=== PATIENT | female | born 1965 | race African-American/Black ===

== ENCOUNTER → 2017-08-26 12:00 | Outpatient (CLI) | payer OTHER, SELFPAY ==
[2017-08-26 12:20] LABS: Basophils # 0.1 K/mm3 (0-0.2); Basophils % 0.7 % (0.1-2.0); Eosinophils # 0.3 K/mm3 (0.0-0.4); Eosinophils % 2.9 % (0.1-12.0); Hematocrit 43.2 % (37.0-47.0); Hemoglobin 13.6 g/dL (12.2-16.2); Lymphocytes % 27.7 K/mm3 (10-50); Mean Corpuscular HGB Conc 31.5 g/dL (31.8-35.4); Mean Corpuscular Hemoglobin 28.6 pg (27.0-31.2); Mean Corpuscular Volume 90.7 fl (81-99); Mean Platelet Volume 7.5 fl (7.4-10.4); Monocytes # 0.5 K/mm3 (0.1-1.0); Monocytes % 4.4 % (1.7-9.3); Neutrophils # 7.1 K/mm3 (1.8-7.8); Neutrophils % 64.3 % (37.0-80.0); Platelet Count 252 K/mm3 (142-424); Red Blood Count 4.76 M/mm3 (4.20-5.40); Red Cell Distribution Width 13.5 % (11.5-17.5)
[2017-08-26 14:14] LABS: Amphetamine/Metha Screen,Urine Negative ng/mL (<1000); Barbiturates Screen,Urine Negative ng/mL (<200); Benzodiazepines Screen,Urine Negative ng/mL (200); Cannabinoid Screen,Urine Positive ng/mL (<50); Cocaine Screen,Urine Negative ng/g (<300); Methadone Screen,Urine Negative ng/mL (<300); Opiate Screen,Urine Negative ng/mL (<300); Phencyclidine Screen,Urine Negative ng/mL (<25)
[2017-08-26 14:58] LABS: Alanine Aminotransferase 34 U/L (12-78); Albumin Level 3.4 gm/dL (3.4-5.0); Albumin/Globulin Ratio 0.9 (1.1-1.8); Alkaline Phosphatase 91 U/L (46-116); Anion Gap 10.3 mEq/L (5-15); Aspartate Amino Transferase 13 U/L (15-37); Bilirubin,Total 0.2 mg/dL (0.2-1.0); Blood Urea Nitrogen 11 mg/dL (7-18); Calcium 9.2 mg/dL (8.5-10.1); Carbon Dioxide 33 mmol/L (21.0-32.0); Chloride 99 mmol/L (98-107); Creatinine,Serum 0.71 mg/dL (0.55-1.02); Estimated Glomerular Filt Rate 87 ml/min (>60); GFR (African American) 105 ML/MIN (>60); Glucose 264 mg/dL (74-106); Potassium 4.3 mmoL/L (3.5-5.1); Sodium 138 mmol/L (136-145); Total Protein,Serum 7.4 gm/dL (6.4-8.2)
[2017-08-27 08:28] LABS: Iron 51 ug/dL (27-159); UIBC 254 ug/dL (131-425)
[2017-08-27 11:39] LABS: Iron Saturation 17 % (15-55)
== END ==
PROVIDERS: Visit Provider Nurse Practitioner Family
DX: Z79.899 Other long term (current) drug therapy (principal); R53.83 Other fatigue; R42 Dizziness and giddiness
CPT/HCPCS: 36415; 80053; 80305; 83550; 85025

== ENCOUNTER → 2017-09-10 12:16 | Outpatient (CLI) | payer OTHER, SELFPAY ==
--- NOTE | 2017-09-10 12:18 | CI_ITS ---
Cerebrovascular Exam Indications: 780.4 Dizziness and giddiness. IMPRESSIONS 1. The bilateral vertebral arteries are patent with normal antegrade flow. 2. Study suggests less than 20% stenosis involving the right internal carotid artery and the left internal carotid artery. Carotid duplex study. Complete study and Doppler flow study including spectral analysis, color and gruber scale imaging. Height: Height: 160cm. Height: 63in. Weight: Weight: 135.2kg. Weight: 297.4lb. Body mass index: BMI: 52.8kg/m^2. Body surface area: BSA: 2.54m^2. Patient status: Outpatient. Tables: Arterial flow: + +--------+--------+ Location V sys V ed + +--------+--------+ Right CCA - proximal 94.3cm/s 19.6cm/s + +--------+--------+ Right CCA - distal 69.9cm/s 19.6cm/s + +--------+--------+ Right ECA 74.7cm/s -------- + +--------+--------+ Right ICA - proximal 57.3cm/s 17.8cm/s + +--------+--------+ Right ICA - mid 78.6cm/s 24.1cm/s + +--------+--------+ Right ICA - distal 41.9cm/s 11.2cm/s + +--------+--------+ Right vertebral 38.1cm/s -------- + +--------+--------+ Left CCA - proximal 78.9cm/s 16.1cm/s + +--------+--------+ Left CCA - distal 62.2cm/s 16.4cm/s + +--------+--------+ Left ECA 107cm/s -------- + +--------+--------+ Left ICA - proximal 83.6cm/s 24.5cm/s + +--------+--------+ Left ICA - mid 104cm/s 31.4cm/s + +--------+--------+ Left ICA - distal 94.9cm/s 36.5cm/s + +--------+--------+ Left vertebral 33.9cm/s -------- + +--------+--------+ (Report amended ) Electronically signed by: Benjie Medina [id number]
== END ==
PROVIDERS: Family Provider Emergency Medicine; PCP Nurse Practitioner Family; Visit Provider Nurse Practitioner Family
DX: R42 Dizziness and giddiness (principal); R53.83 Other fatigue; Z79.899 Other long term (current) drug therapy
CPT/HCPCS: 93880

== ENCOUNTER → 2017-09-30 11:11 | Outpatient (CLI) | payer OTHER, SELFPAY ==
[2017-09-30 11:34] LABS: Basophils # 0.1 K/mm3 (0-0.2); Basophils % 0.7 % (0.1-2.0); Eosinophils # 0.3 K/mm3 (0.0-0.4); Eosinophils % 2.9 % (0.1-12.0); Hematocrit 46.6 % (37.0-47.0); Hemoglobin 14.3 g/dL (12.2-16.2); Lymphocytes # 2.6 K/mm3 (0.7-4.5); Lymphocytes % 23.8 K/mm3 (10-50); Mean Corpuscular HGB Conc 30.7 g/dL (31.8-35.4); Mean Corpuscular Hemoglobin 28.8 pg (27.0-31.2); Mean Corpuscular Volume 93.8 fl (81-99); Monocytes # 0.4 K/mm3 (0.1-1.0); Neutrophils # 7.4 K/mm3 (1.8-7.8); Neutrophils % 68.6 % (37.0-80.0); Platelet Count 284 K/mm3 (142-424); Red Blood Count 4.97 M/mm3 (4.20-5.40); Red Cell Distribution Width 13.8 % (11.5-17.5); White Blood Count 10.8 K/mm3 (4.8-10.8)
[2017-09-30 15:11] LABS: Ferritin 46 ng/mL (8-388)
[2017-10-01 08:28] LABS: Iron 66 ug/dL (27-159); UIBC 261 ug/dL (131-425)
[2017-10-01 17:52] LABS: Iron Saturation 20 % (15-55)
== END ==
PROVIDERS: PCP Nurse Practitioner Family; Visit Provider Nurse Practitioner
DX: D64.9 Anemia, unspecified (principal); D50.9 Iron deficiency anemia, unspecified
CPT/HCPCS: 36415; 82728; 83550; 85025

== ENCOUNTER → 2017-10-01 11:41 | Outpatient (REF) | payer OTHER, SELFPAY ==
[2017-10-01 19:11] LABS: Amphetamine/Metha Screen,Urine Negative ng/mL (<1000); Barbiturates Screen,Urine Negative ng/mL (<200); Benzodiazepines Screen,Urine Negative ng/mL (200); Cannabinoid Screen,Urine Positive ng/mL (<50); Cocaine Screen,Urine Negative ng/g (<300); Methadone Screen,Urine Negative ng/mL (<300); Opiate Screen,Urine Negative ng/mL (<300); Phencyclidine Screen,Urine Negative ng/mL (<25)
== END ==
LOC: LAB 11:41
PROVIDERS: Visit Provider Nurse Practitioner Family
DX: Z79.899 Other long term (current) drug therapy (principal)
CPT/HCPCS: 80305

== ENCOUNTER → 2017-10-19 09:12 | Outpatient (REF) | payer OTHER, SELFPAY ==
[2017-10-19 19:17] LABS: Amphetamine/Metha Screen,Urine Negative ng/mL (<1000); Barbiturates Screen,Urine Negative ng/mL (<200); Benzodiazepines Screen,Urine Negative ng/mL (200); Cannabinoid Screen,Urine Positive ng/mL (<50); Cocaine Screen,Urine Negative ng/g (<300); Methadone Screen,Urine Negative ng/mL (<300); Opiate Screen,Urine Negative ng/mL (<300); Phencyclidine Screen,Urine Negative ng/mL (<25)
== END ==
LOC: LAB 09:12
PROVIDERS: Visit Provider Nurse Practitioner Family
DX: Z79.899 Other long term (current) drug therapy (principal)
CPT/HCPCS: 80305

== ENCOUNTER → 2019-04-19 17:08 | Outpatient (CLI) | payer OTHER, SELFPAY ==
[2019-04-19 17:31] LABS: Basophils # 0.1 K/mm3 (0-0.2); Basophils % 0.9 % (0.1-2.0); Eosinophils # 0.3 K/mm3 (0.0-0.4); Eosinophils % 2.1 % (0.1-12.0); Hematocrit 51.5 % (37.0-47.0); Hemoglobin 15.5 g/dL (12.2-16.2); Lymphocytes # 3.4 K/mm3 (0.7-4.5); Lymphocytes % 27.5 % (10-50); Mean Corpuscular HGB Conc 30.1 g/dL (31.8-35.4); Mean Corpuscular Hemoglobin 28.3 pg (27.0-31.2); Mean Corpuscular Volume 93.9 fl (81-99); Mean Platelet Volume 8.6 fl (7.4-10.4); Monocytes # 0.5 K/mm3 (0.1-1.0); Monocytes % 3.9 % (1.7-9.3); Neutrophils % 65.5 % (37.0-80.0); Platelet Count 344 K/mm3 (142-424); Red Blood Count 5.49 M/mm3 (4.20-5.40); Red Cell Distribution Width 13.3 % (11.5-17.5); White Blood Count 12.2 K/mm3 (4.8-10.8)
[2019-04-19 18:08] LABS: Hemoglobin A1C 10.2 % (0.0-7.0)
[2019-04-19 20:12] LABS: Alanine Aminotransferase 45 U/L (12-78); Albumin Level 3.7 gm/dL (3.4-5.0); Albumin/Globulin Ratio 0.8 (1.1-1.8); Alkaline Phosphatase 105 U/L (46-116); Anion Gap 13.6 mEq/L (5-15); Aspartate Amino Transferase 27 U/L (15-37); Bilirubin,Total 0.4 mg/dL (0.2-1.0); Blood Urea Nitrogen 15 mg/dL (7-18); Calcium 10.3 mg/dL (8.5-10.1); Carbon Dioxide 29 mmol/L (21.0-32.0); Chloride 95 mmol/L (98-107); Chol/HDL Ratio 7.1 (1-3.5); Cholesterol 269 mg/dL (140-200); Creatinine,Serum 0.87 mg/dL (0.55-1.02); Estimated Glomerular Filt Rate 68 ml/min (>60); GFR (African American) 82 ML/MIN (>60); Globulin 4.6 gm/dl (1.3-3.2); Glucose 318 mg/dL (74-106); HDL Cholesterol 38 mg/dL (29-89); LDL Cholesterol 176 mg/dL (0-130); Potassium 4.6 mmoL/L (3.5-5.1); Sodium 133 mmol/L (136-145); T4 (Thyroxine) 9.9 ug/dl (4.7-13.3); Thyroid Stimulating Hormone 2.97 uIU/ml (0.358-3.740); Total Protein,Serum 8.3 gm/dL (6.4-8.2); Triglycerides 275 mg/dL (30-200); VLDL Cholesterol 55 mg/dL (0-40)
[2019-04-21 07:35] LABS: Vitamin D 25 Hydroxy 10.7 ng/mL (30.0-100.0)
[2019-04-21 10:10] LABS: Creatinine, Urine 180.5 mg/dL (Not Estab.); Microalbumin, Urine 207.2 ug/mL (Not Estab.)
[2019-04-22 18:47] LABS: C-Peptide 9.8 ng/mL (1.1-4.4)
== END ==
PROVIDERS: Visit Provider Nurse Practitioner Family
DX: E11.9 Type 2 diabetes mellitus without complications (principal); E55.9 Vitamin D deficiency, unspecified
CPT/HCPCS: 80053; 80061; 82043; 82570; 82652; 83036; 84436; 84443; 84681; 85025

== ENCOUNTER → 2019-05-16 09:51 | Outpatient (CLI) | payer OTHER, SELFPAY ==
[2019-05-16 11:28] VITALS: BMI 53.6
--- NOTE | 2019-05-16 15:03 | DIET.NUTRFU ---
Nutritional assessment completed by Shauna has been completed under my supervision.
== END ==
PROVIDERS: PCP Emergency Medicine; Visit Provider Nurse Practitioner Family
DX: Z71.3 Dietary counseling and surveillance (principal); E11.9 Type 2 diabetes mellitus without complications
CPT/HCPCS: 97802

== ENCOUNTER → 2019-05-19 13:26 | Outpatient (CLI) | payer OTHER, SELFPAY ==
[2019-05-19 14:22] LABS: Amphetamine/Metha Screen,Urine Negative ng/mL (<1000); Barbiturates Screen,Urine Negative ng/mL (<200); Benzodiazepines Screen,Urine Negative ng/mL (<200); Cannabinoid Screen,Urine Positive ng/mL (<50); Cocaine Screen,Urine Negative ng/mL (<300); Methadone Screen,Urine Negative ng/mL (<300); Opiate Screen,Urine Negative ng/mL (<300); Phencyclidine Screen,Urine Negative ng/mL (<25)
== END ==
PROVIDERS: Visit Provider Nurse Practitioner Family
DX: Z79.899 Other long term (current) drug therapy (principal)
CPT/HCPCS: 80305

== ENCOUNTER → 2019-06-02 06:16 | Outpatient (CLI) | payer OTHER, SELFPAY ==
--- NOTE | 2019-06-02 06:16 | CA_ITS ---
APPROVED REPORT EXAM: Comprehensive 2D, Doppler, and color-flow Echocardiogram [employer] Superintendent: Marycruz Lu RDCS Ht: 5 ft 3 in Wt: 298lbs BSA: 2.29 BP: 147/70 mmHg Indications: Shortness of Breath, Diabetes, Obesity, Hyperlipidemia 2D Dimensions LVOT 2.05 cm (M/F) 1.5-2.5 M-Mode Dimensions RVDd 2.37 cm (0.9-2.6) LVDd 5.27 cm (3.5-5.7) LVDs 3.82 cm (3.5-5.7) IVSd 0.97 cm (0.6-1.1) PWd 0.97 cm (0.6-1.1) EF (Teich) 53.10% FS 27.50% EDV (Teich) 133.60 mL ESV (Teich) 62.70 mL LV Diastology E/A Ratio 0.77 Mitral Valve MV A Velocity 73.00 (40-130 cm/s) Left Ventricle Left atrium is normal size, left ventricle is normal size, left ventricular wall thickness is upper limit of the normal, visually estimated ejection fraction 55 to 60% with no regional wall motion abnormality, grade 1 diastolic dysfunction seen without tissue Doppler evidence of raise left atrial pressure. Right Ventricle Right atrium and right ventricular normal size and contractility. Aortic Valve Aortic valve is grossly normal, there is no aortic stenosis aortic insufficiency. Mitral Valve Mitral valve is grossly normal, there is no mitral stenosis, there is trace mitral regurgitation. Tricuspid Valve Tricuspid valve is grossly normal, there is trace tricuspid regurgitation. Tricuspid regurgitation jet velocity is inadequate for calculation of the right ventricular systolic pressure. Pulmonic Valve Pulmonic valve is poorly visualized. Great Vessels Aortic root is normal size. Pericardium No significant pericardial effusion noted. Conclusion 1. Normal left ventricular size, preserved left ventricular systolic function, visually estimated ejection fraction 55 to 60% with no regional wall motion abnormality, grade 1 diastolic dysfunction seen without tissue Doppler evidence of raise left atrial pressure. 2. Trace mitral and tricuspid regurgitation. 3. No significant pericardial effusion noted. Electronically signed by : Mekhi Carson, 06/02/2019 14:16:30
--- NOTE | 2019-06-02 06:22 | NM_ITS ---
APPROVED REPORT Exam: Nuclear Stress Test Indication: htn, d.m., hyperlipidemia, tob use, palpitations, fatique Patient Location: Outpatient Stress Tech: Ju Moser CO Tech:ROQUE Bernard RT(R)(N) Ht: 5 ft 3 in Wt: 296 lbs Bra Size: 44dd HR: 82 bpm BP: 125/70 mmHg BSA: 2.28 m2 BMI: 52.4 History: htn, d.m., hyperlipidemia, tob use, palpitations, fatique Procedure: Patient received a 0.4 mg of intravenous Lexiscan, resting heart rate 82 bpm, resting blood pressure 125/70 mmHg, with Lexiscan maximum heart rate achived was 115 bpm which is Less than 85 % of the maximum predicted heart rate and blood pressure was 121/52 mmHg. With Lexiscan, patient denied any complaint of chest pain. Electrocardiogram Resting EKG shows sinus rhythm, with Lexiscan less than 1.[address] segment depression noted from the baseline EKG. The EKG portion of the Lexiscan Myoview is nondiagnostic. Cardiac Stress and Resting SPECT Images: Cardiac Stress and Resting SPECT images were obtained using technetium 99m Myoview 31.0 mCi stress and 10.26 mCi at rest. Gated SPECT with analysis of segmental wall motion and calculation of the ejection fraction also done. Cardiac stress and rest SPECT which show a fixed defect involving the inferior posterior basal wall with decreased contractility on the gated SPECT is likely secondary to nontransmural myocardial infarction, no reversible ischemia seen. Computer derived ejection fraction is 59% with moderate inferior wall hypokinesis on gated SPECT. Conclusion: 1. The EKG portion of the Lexiscan Myoview is nondiagnostic. 2. Scintigraphic evidence of nontransmural myocardial scarring involving the inferior wall as described above, computer derived ejection fraction 59% with segmental wall motion abnormality described above. 3. Abnormal Lexiscan Myoview study. Electronically signed by : Mekhi Carson, 06/02/2019 14:47:06
--- NOTE | 2019-06-02 06:22 | CA_ITS ---
APPROVED REPORT Exam: Pharmacologic Technologist: jon mckeon, Ht: 5 ft 3 in Wt: 296 lbs BSA: 2.28 m2 HR: 82 bpm BP: 127/57 mmHg Rhythm: NSR Indications: SOB, PALPATATIONS Medical History Medications: Lisinopril,,,,, HCTZ,,,,, Flonase,,,,, INSULIN,,,,, Albuterol,,,,, LoraTADINE,,,,, DicyCLOMINE,,,,, Hydroxyzine,,,,, RoSUVASTATIN,,,,, DOxycycline,,,,, Phentermine,,,,, OmPERAZOLE,,,,, Allergies: PCN Cardiac Risk Factors: HTN, Hyperlipidemia, Diabetes (insulin), Smoking Stress Test Details Test: LEXISCAN HR Resting HR: 84 bpm Max Heart Rate (APMHR): 167 bpm Max HR Achieved: 116 bpm Target HR (85% APMHR): 141 bpm % of APMHR: 69 Recovery HR: 94 bpm BP Resting BP: 125/57 mmHg Max BP: 138/57 mmHg Recovery BP: 121.0/52.0 mmHg ECG Resting ECG: NSR Clinical Exercise duration: 04:00 min Highest Stage Achieved: Exercise capacity: 1.0 METs Stress ECG Conclusion Lexiscan portion completed. No complaints during peak infusion. Occ PVC. Less than 1.5mm ST Depression. Images to follow. Electronically signed by : Mekhi Carson, 06/02/2019 14:44:21
--- NOTE | 2019-06-02 11:38 | HMH.ITSHM ---
Current Home Medications as stated by this patient Janneth Sepulveda or plastic products sales representative. []triamcinolone rosurastatin omeprazole lisinopril albuterol dicyclomine insulin
== END ==
PROVIDERS: PCP Nurse Practitioner Family; Visit Provider Nurse Practitioner Family
DX: E11.65 Type 2 diabetes mellitus with hyperglycemia (principal); R06.02 Shortness of breath; Z79.4 Long term (current) use of insulin
CPT/HCPCS: 78452; 93017; 93306; A9502; J2785

== ENCOUNTER → 2019-07-04 10:15 | Outpatient (CLI) | payer OTHER, SELFPAY ==
[2019-07-04 10:19] LABS: Microscopic, Urine URINE MICROSCOPIC (MICROSCOPIC)
[2019-07-04 10:43] LABS: Basophils # 0.1 K/mm3 (0-0.2); Basophils % 0.6 % (0.1-2.0); Eosinophils # 0.4 K/mm3 (0.0-0.4); Hematocrit 43.4 % (37.0-47.0); Hemoglobin 13.8 g/dL (12.2-16.2); Lymphocytes # 3.5 K/mm3 (0.7-4.5); Mean Corpuscular HGB Conc 31.7 g/dL (31.8-35.4); Mean Corpuscular Volume 91.3 fl (81-99); Mean Platelet Volume 7.9 fl (7.4-10.4); Monocytes # 0.5 K/mm3 (0.1-1.0); Monocytes % 4.2 % (1.7-9.3); Neutrophils # 7.1 K/mm3 (1.8-7.8); Neutrophils % 62.1 % (37.0-80.0); Platelet Count 324 K/mm3 (142-424); Red Blood Count 4.76 M/mm3 (4.20-5.40); Red Cell Distribution Width 13.7 % (11.5-17.5); White Blood Count 11.5 K/mm3 (4.8-10.8)
[2019-07-04 10:54] LABS: Appearance,Urine CLEAR (Clear); Bilirubin,Urine Negative (Negative); Blood, Urine 2+ (Negative); Color,Urine YELLOW (Yellow); Glucose,Urine (UA) Negative (Negative); Ketones,Urine Negative (Negative); Leukocyte Esterase,Urine Negative (Negative); Nitrate,Urine Negative (Negative); PH,Urine 6.5 (5.0-8.5); Protein,Urine Negative (Negative); Urobilinogen,Urine 0.2 EU/dl (0.2)
[2019-07-04 11:51] LABS: Albumin Level 3.1 gm/dL (3.4-5.0); Anion Gap 11.3 mEq/L (5-15); Blood Urea Nitrogen 15 mg/dL (7-18); Carbon Dioxide 30 mmol/L (21.0-32.0); Chloride 101 mmol/L (98-107); Creatinine,Serum 0.67 mg/dL (0.55-1.02); Estimated Glomerular Filt Rate 92 ml/min (>60); GFR (African American) 111 ML/MIN (>60); Glucose 196 mg/dL (74-106); Phosphorous 3.4 mg/dL (2.4-4.9); Potassium 4.3 mmoL/L (3.5-5.1); Sodium 138 mmol/L (136-145)
[2019-07-04 13:35] LABS: Creatinine,Urine Random 26 mg/dL (20-320)
[2019-07-04 15:09] LABS: Total Protein,Urine Random < 6.0 mg/dL (0.0-11.9)
[2019-07-05 11:08] LABS: Vitamin D 25 Hydroxy 11.3 ng/mL (30.0-100.0)
[2019-07-06 08:14] LABS: Parathyroid Hormone Intact 23 pg/mL (15-65)
== END ==
PROVIDERS: Visit Provider Internal Medicine Nephrology
DX: R80.9 Proteinuria, unspecified (principal)
CPT/HCPCS: 36415; 80069; 81001; 82570; 82652; 83970; 84155; 85025

== ENCOUNTER → 2019-07-06 13:10 | Outpatient (CLI) | payer OTHER, SELFPAY ==
--- NOTE | 2019-07-06 13:10 | CT_ITS ---
PROCEDURE: CT ABDOMEN PELVIS WO CON CLINICAL INDICATION: hernia Umbilical hernia COMPARISON: No exams were available for comparison TECHNIQUE: Axial images obtained with sagittal and coronal reformats. All CT scans at the facility use one or more dose reduction, viz: automated exposure control, ma/kV adjustment per patient size (including targeted exams where dose is matched to indication, i.e. head), or iterative reconstruction technique. FINDINGS: LOWER THORAX: There is a noncalcified 5 mm nodule in the right middle lobe inferiorly with mild fibrotic changes in the right lung base. A subpleural nodular density is present in the right lower lobe posterior laterally measuring 13 mm. There are no previous exams available for comparison. Coronary artery calcification noted ABDOMEN & PELVIS: Fatty liver infiltration with hepatomegaly. No focal liver lesion apparent. Old granulomatous disease of the spleen. The left adrenal gland is prominent measuring 3.3 x 2 cm the internal density is -7 Hounsfield units consistent with an adenoma. The right adrenal gland, pancreas, gallbladder and kidneys have an unremarkable unenhanced appearance. No renal or ureteral calculi. There is diastasis of the abdominal wall at and above the umbilicus with a small umbilical hernia containing fat. There is thickening the subcutaneous tissues at the umbilicus. No fluid collection is evident. No intestinal obstruction or free air. Unremarkable appendix. There is diverticulosis of the descending and sigmoid colon. No evidence of diverticulitis. No pelvic mass abnormal fluid collection or focal inflammatory change of the pelvis. There are degenerative changes of the lumbar spine. Small lymph nodes are present in the inguinal region on both sides. IMPRESSION: 1. Diastasis of the abdominal wall at and just above the region of the umbilicus with a small umbilical hernia with moderate thickening of the subcutaneous tissues of the umbilicus. No abscess or mass. 2. Indeterminate 13 mm and 5 mm nodule in the right lower lobe and right middle lobe respectively. Suggest [address] follow-up of the chest with contrast. 3. Left adrenal adenoma 4. Colonic diverticulosis without diverticulitis 5. Hepatomegaly with fatty liver Dictated by: Cedrick Burnette MD 07/07/2019 10:35 Electronically signed by Cedrick Burnette MD in [place] 07/07/2019 10:35
== END ==
PROVIDERS: PCP Emergency Medicine; Visit Provider Nurse Practitioner Family
DX: K46.9 Unspecified abdominal hernia without obstruction or gangrene (principal)
CPT/HCPCS: 74176

== ENCOUNTER → 2019-07-10 15:02 | Outpatient (POV) | payer OTHER, SELFPAY | PROVIDERS: Visit Provider Internal Medicine Nephrology | DX: Z00.00 Encounter for general adult medical examination without abnormal findings (principal) ==

== ENCOUNTER → 2019-08-08 10:05 | Outpatient (CLI) | payer OTHER, SELFPAY ==
--- NOTE | 2019-08-08 10:11 | CT_ITS ---
PROCEDURE: CT CHEST W CON CLINCAL INDICATION: 3 mth f/u Follow-up lung nodule COMPARISON: CT ABDOMEN PELVIS WO CON from 07/06/2019 TECHNIQUE: IV Contrast: 75ml Optiray 350 Axial images obtained with sagittal and coronal reformats. All CT scans at the facility use one or more dose reduction, viz: automated exposure control, ma/kV adjustment per patient size (including targeted exams where dose is matched to indication, i.e. head), or iterative reconstruction technique. FINDINGS: HEART AND MEDIASTINAL STRUCTURES: There are few scattered small mediastinal lymph nodes. Coronary artery calcifications are present. Normal heart size. LUNGS AND PLEURAL SPACES: There is a fissural nodule in the right minor fissure which measures 11 mm. A vague 4 mm nodules present in the right middle lobe. A noncalcified 5 mm nodule is present in the right middle lobe inferiorly not significantly changed. A subpleural nodular opacity is present in the right lower lobe posterior laterally at 12 mm unchanged. There is a calcified granuloma in the right lower lobe. An 8 mm noncalcified nodules present in the left perihilar region superiorly. No pleural effusions. BONY STRUCTURES: No acute bony abnormalities apparent. UPPER ABDOMEN: Calcification noted at the ostium of the celiac artery with suspected stenosis. Motion artifact obscures fine detail. A ADDITIONAL FINDINGS: No other significant abnormalities. IMPRESSION: 1. There are noncalcified bilateral pulmonary nodules as described above. The nodules in the right lower lobe have not significantly changed in the 1 month interval. The other nodules were not imaged on the previous exam. Recommend six-month follow-up to confirm stability. 2. Other nonacute findings as described above Dictated by: Cedrick Burnette MD 08/09/2019 12:21 Electronically signed by Cedrick Burnette MD in [place] 08/09/2019 12:21
[2019-08-08 10:38] LABS: Anion Gap 12.8 mEq/L (5-15); Blood Urea Nitrogen 20 mg/dL (7-18); Calcium 9.6 mg/dL (8.5-10.1); Carbon Dioxide 29 mmol/L (21.0-32.0); Chloride 100 mmol/L (98-107); Creatinine,Serum 0.88 mg/dL (0.55-1.02); Estimated Glomerular Filt Rate 67 ml/min (>60); GFR (African American) 81 ML/MIN (>60); Glucose 131 mg/dL (74-106); Potassium 3.8 mmoL/L (3.5-5.1); Sodium 138 mmol/L (137-145)
== END ==
PROVIDERS: PCP Nurse Practitioner Family; Visit Provider Nurse Practitioner Family
DX: Z01.818 Encounter for other preprocedural examination (principal); R91.1 Solitary pulmonary nodule
CPT/HCPCS: 36415; 71260; 80048; Q9967

== ENCOUNTER → 2019-08-11 13:25 | Outpatient (CLI) | payer OTHER, SELFPAY ==
[2019-08-11 13:48] LABS: Basophils # 0.1 K/mm3 (0-0.2); Basophils % 0.8 % (0.1-2.0); Eosinophils # 0.3 K/mm3 (0.0-0.4); Eosinophils % 3.1 % (0.1-12.0); Hematocrit 46.5 % (37.0-47.0); Hemoglobin 14.2 g/dL (12.2-16.2); Lymphocytes # 2.6 K/mm3 (0.7-4.5); Lymphocytes % 31.4 % (10-50); Mean Corpuscular HGB Conc 30.5 g/dL (31.8-35.4); Mean Corpuscular Hemoglobin 28.5 pg (27.0-31.2); Mean Corpuscular Volume 93.4 fl (81-99); Mean Platelet Volume 8.1 fl (7.4-10.4); Monocytes # 0.4 K/mm3 (0.1-1.0); Monocytes % 4.8 % (1.7-9.3); Neutrophils # 4.9 K/mm3 (1.8-7.8); Neutrophils % 59.9 % (37.0-80.0); Platelet Count 277 K/mm3 (142-424); Red Blood Count 4.97 M/mm3 (4.20-5.40); Red Cell Distribution Width 14.5 % (11.5-17.5); White Blood Count 8.2 K/mm3 (4.8-10.8)
[2019-08-11 14:22] LABS: Alanine Aminotransferase 41 U/L (9-52); Albumin Level 3.5 g/dL (3.4-5.0); Albumin/Globulin Ratio 0.9 (1.1-1.8); Alkaline Phosphatase 92 U/L (46-116); Anion Gap 12.5 mEq/L (5-15); Aspartate Amino Transferase 20 U/L (15-37); Bilirubin,Total 0.4 mg/dL (0.2-1.0); Blood Urea Nitrogen 15 mg/dL (7-18); Calcium 9.6 mg/dL (8.5-10.1); Carbon Dioxide 29 mmol/L (21.0-32.0); Chloride 105 mmol/L (98-107); Chol/HDL Ratio 4.6 (1-3.5); Cholesterol 147 mg/dL (140-200); Creatinine,Serum 0.81 mg/dL (0.55-1.02); Estimated Glomerular Filt Rate 74 ml/min (>60); GFR (African American) 89 ML/MIN (>60); Globulin 3.9 gm/dl (1.3-3.2); Glucose 123 mg/dL (74-106); HDL Cholesterol 32 mg/dL (29-89); LDL Cholesterol 91 mg/dL (0-130); Potassium 4.5 mmoL/L (3.5-5.1); Sodium 142 mmol/L (137-145); T4 (Thyroxine) 8.6 ug/dl (4.7-13.3); Thyroid Stimulating Hormone 3.02 uIU/ml (0.358-3.740); Total Protein,Serum 7.4 g/dL (6.4-8.2); Triglycerides 120 mg/dL (30-200); VLDL Cholesterol 24 mg/dL (0-40)
[2019-08-11 17:24] LABS: Hemoglobin A1C 7.4 % (0.0-7.0)
[2019-08-12 07:54] LABS: Iron 58 ug/dL (27-159); UIBC 239 ug/dL (131-425)
[2019-08-12 19:12] LABS: Iron Saturation 20 % (15-55)
== END ==
PROVIDERS: Visit Provider Nurse Practitioner Family
DX: E11.9 Type 2 diabetes mellitus without complications (principal); E55.9 Vitamin D deficiency, unspecified; Z79.4 Long term (current) use of insulin
CPT/HCPCS: 80053; 80061; 82652; 83036; 83540; 83550; 84436; 84443; 85025

== ENCOUNTER → 2019-10-11 16:11 | Outpatient (CLI) | payer OTHER, SELFPAY | PROVIDERS: Visit Provider Nurse Practitioner Family | DX: R10.9 Unspecified abdominal pain (principal) | CPT/HCPCS: 87086 ==

== ENCOUNTER → 2019-11-08 15:15 | Outpatient (CLI) | payer OTHER, SELFPAY ==
[2019-11-08 15:54] LABS: Basophils # 0.1 K/mm3 (0-0.2); Basophils % 0.6 % (0.1-2.0); Eosinophils # 0.3 K/mm3 (0.0-0.4); Eosinophils % 2.4 % (0.1-12.0); Hematocrit 43.1 % (37.0-47.0); Hemoglobin 13.4 g/dL (12.2-16.2); Lymphocytes # 2.6 K/mm3 (0.7-4.5); Lymphocytes % 23.6 % (10-50); Mean Corpuscular HGB Conc 31.2 g/dL (31.8-35.4); Mean Corpuscular Hemoglobin 28.9 pg (27.0-31.2); Mean Corpuscular Volume 92.8 fl (81-99); Monocytes # 0.4 K/mm3 (0.1-1.0); Monocytes % 3.9 % (1.7-9.3); Neutrophils # 7.6 K/mm3 (1.8-7.8); Neutrophils % 69.5 % (37.0-80.0); Platelet Count 324 K/mm3 (142-424); Red Blood Count 4.64 M/mm3 (4.20-5.40); Red Cell Distribution Width 15.2 % (11.5-17.5); White Blood Count 10.9 K/mm3 (4.8-10.8)
[2019-11-08 16:25] LABS: Hemoglobin A1C 6.2 % (4.0-6.0)
[2019-11-08 18:05] LABS: Alanine Aminotransferase 28 U/L (12-78); Albumin Level 4.1 g/dl (3.5-5.0); Albumin/Globulin Ratio 1.2 (1.1-1.8); Alkaline Phosphatase 98 U/L (38-126); Anion Gap 11.6 mEq/L (5-15); Aspartate Amino Transferase 29 U/L (14-36); Blood Urea Nitrogen 14 mg/dl (7-17); Carbon Dioxide 31 mmol/L (22.0-30.0); Chloride 98 mmol/L (98-107); Cholesterol 156 mg/dl (140-200); Estimated Glomerular Filt Rate 129 ml/min (>60); GFR (African American) 156 ML/MIN (>60); Globulin 3.3 g/dL (1.3-3.2); Glucose 163 mg/dl (74-100); HDL Cholesterol 52 mg/dl (40-60); Potassium 4.6 mmoL/L (3.5-5.1); Sodium 136 mmol/L (136-145); Total Protein,Serum 7.4 g/dl (6.3-8.2); Triglycerides 138 mg/dl (30-150); VLDL Cholesterol 28 mg/dL (0-40)
[2019-11-08 18:09] LABS: Bilirubin,Total 0.1 mg/dl (0.2-1.3)
[2019-11-08 18:15] LABS: Direct LDL Cholesterol 112.31 mg/dL (100-129)
[2019-11-08 18:22] LABS: T4 (Thyroxine) 8.8 ug/dl (5.53-11.0)
[2019-11-08 18:36] LABS: Thyroid Stimulating Hormone 2.17 uIU/mL (0.465-4.68)
[2019-11-10 07:38] LABS: Vitamin D 25 Hydroxy 23.3 ng/mL (30.0-100.0)
[2019-11-10 11:12] LABS: Microalbumin, Urine 14.9 ug/mL (Not Estab.)
== END ==
PROVIDERS: Visit Provider Nurse Practitioner Family
DX: E11.9 Type 2 diabetes mellitus without complications (principal); E55.9 Vitamin D deficiency, unspecified; Z79.4 Long term (current) use of insulin
CPT/HCPCS: 80053; 80061; 82043; 82652; 83036; 84436; 84443; 85025

== ENCOUNTER → 2020-01-12 10:51 | Outpatient (CLI) | payer OTHER, SELFPAY ==
--- NOTE | 2020-01-12 11:07 | XR_ITS ---
PROCEDURE: XR SHOULDER RT MIN 2V CLINICAL INDICATION: right shoulder pain after picking up heavy object COMPARISON: CXR CHEST(2 VIEWS-NOT PORTABLE) from 10/08/2014 FINDINGS: The lateral clavicle is intact. The sternal clavicular junction is not included on this image. There is narrowing and spurring of the AC joint both superiorly and inferiorly. The humeral head and glenoid appear intact. There are no soft tissue calcifications. IMPRESSION: Degenerate changes of the AC joint, the prominent inferior spurring of the distal clavicle could predispose to a mild degree of impingement syndrome. Dictated by: Dr. Dave Blas MD 01/12/2020 12:[address] Dave Blas MD in [place] 01/12/2020 12:14
[2020-01-12 11:31] LABS: Basophils # 0.1 K/mm3 (0-0.2); Basophils % 0.7 % (0.1-2.0); Eosinophils # 0.3 K/mm3 (0.0-0.4); Eosinophils % 2.5 % (0.1-12.0); Hematocrit 42.6 % (37.0-47.0); Hemoglobin 14.1 g/dL (12.2-16.2); Lymphocytes # 3.2 K/mm3 (0.7-4.5); Lymphocytes % 30.7 % (10-50); Mean Corpuscular Hemoglobin 29.9 pg (27.0-31.2); Mean Corpuscular Volume 90.7 fl (81-99); Mean Platelet Volume 7.4 fl (7.4-10.4); Monocytes # 0.4 K/mm3 (0.1-1.0); Monocytes % 3.7 % (1.7-9.3); Neutrophils # 6.6 K/mm3 (1.8-7.8); Neutrophils % 62.5 % (37.0-80.0); Platelet Count 306 K/mm3 (142-424); Red Cell Distribution Width 13.9 % (11.5-17.5); White Blood Count 10.5 K/mm3 (4.8-10.8)
[2020-01-12 11:56] LABS: Creatinine,Urine Random 17 mg/dL (Not Estab.); Microalbumin < 6.000 mg/L (0-16.7)
[2020-01-12 11:58] LABS: Hemoglobin A1C 6.4 % (4.0-6.0)
[2020-01-12 12:05] LABS: Chloride 98 mmol/L (98-107); Sodium 136 mmol/L (136-145)
[2020-01-12 12:06] LABS: Potassium 4.5 mmoL/L (3.5-5.1)
[2020-01-12 12:08] LABS: Alanine Aminotransferase 28 U/L (12-78); Alkaline Phosphatase 95 U/L (38-126); Anion Gap 10.5 mEq/L (5-15); Aspartate Amino Transferase 28 U/L (14-36); Bilirubin,Total 0.4 mg/dl (0.2-1.3); Blood Urea Nitrogen 17 mg/dl (7-17); Carbon Dioxide 32 mmol/L (22.0-30.0); Estimated Glomerular Filt Rate 88 ml/min (>60); GFR (African American) 106 ML/MIN (>60)
[2020-01-12 12:09] LABS: Albumin Level 4.1 g/dl (3.5-5.0); Albumin/Globulin Ratio 1.3 (1.1-1.8); Calcium 10.3 mg/dl (8.4-10.2); Cholesterol 182 mg/dl (140-200); Globulin 3.2 g/dL (1.3-3.2); Glucose 94 mg/dl (74-100); HDL Cholesterol 50 mg/dl (40-60); Total Protein,Serum 7.3 g/dl (6.3-8.2); Triglycerides 152 mg/dl (30-150); VLDL Cholesterol 30 mg/dL (0-40)
[2020-01-12 12:20] LABS: Direct LDL Cholesterol 103.07 mg/dL (100-129)
[2020-01-12 12:26] LABS: T4 (Thyroxine) 9.9 ug/dl (5.53-11.0)
[2020-01-12 12:39] LABS: Thyroid Stimulating Hormone 1.79 uIU/mL (0.465-4.68)
[2020-01-12 16:25] LABS: Chol/HDL Ratio 3.6 (1-3.5)
== END ==
PROVIDERS: PCP Nurse Practitioner Family; Visit Provider Nurse Practitioner Family
DX: E11.9 Type 2 diabetes mellitus without complications (principal); R80.9 Proteinuria, unspecified; E66.9 Obesity, unspecified; M25.511 Pain in right shoulder
CPT/HCPCS: 36415; 73030; 80053; 80061; 82043; 82570; 83036; 84436; 84443; 85025

== ENCOUNTER → 2020-02-01 07:57 | Outpatient (CLI) | payer OTHER, SELFPAY ==
[2020-02-01 08:14] LABS: Blood Urea Nitrogen 13 mg/dl (7-17); Estimated Glomerular Filt Rate 105 ml/min (>60); GFR (African American) 127 ML/MIN (>60)
== END ==
PROVIDERS: PCP Nurse Practitioner Family; Visit Provider Orthopaedic Surgery
DX: E11.9 Type 2 diabetes mellitus without complications (principal); Z79.4 Long term (current) use of insulin
CPT/HCPCS: 36415; 82565; 84520

== ENCOUNTER → 2020-02-15 14:02 | Outpatient (CLI) | payer OTHER, SELFPAY ==
--- NOTE | 2020-02-15 14:09 | CT_ITS ---
PROCEDURE: CT CHEST W CON CLINCAL INDICATION: 6 mth f/u 6 month f/u lung nodule 75 ml optiary 350 Prior 08/08/19 COMPARISON: CT CT CHEST W CON from 08/08/2019 TECHNIQUE: IV Contrast: 75ml Optiray 350 Axial images obtained with sagittal and coronal reformats. All CT scans at the facility use one or more dose reduction, viz: automated exposure control, ma/kV adjustment per patient size (including targeted exams where dose is matched to indication, i.e. head), or iterative reconstruction technique. FINDINGS: HEART AND MEDIASTINAL STRUCTURES: There are coronary artery calcifications. There are few small mediastinal lymph nodes which have decreased in size compared to 08/08/2019. For instance, there is an AP window node which measures 1.5 x 0.4 cm previously measuring 2.10.9 cm. LUNGS AND PLEURAL SPACES: There is a 10 mm nodule along the right minor fissure which does not appear significantly changed. 5 mm right middle lobe nodule is unchanged. 3 mm noncalcified nodule right lower lobe medially unchanged. The subpleural opacity in the right lower lobe posterior laterally is less apparent previously measuring 12 mm in AP dimension now measuring 8 mm. There is a 3 mm right upper lobe nodule image 34 series 3 unchanged mm nodule right upper lobe image. 3 mm subpleural nodule left upper lobe unchanged. 4 mm nodule left upper lobe medially unchanged. Previously noted left perihilar nodule is smaller measuring 5 mm previously measuring 8 mm. There is a 3 mm noncalcified nodule along the left major fissure image 32 series 3 not readily apparent on the previous study. BONY STRUCTURES: No acute bony abnormalities apparent. UPPER ABDOMEN: Left adrenal gland is enlarged not significantly changed. ADDITIONAL FINDINGS: No other significant abnormalities. IMPRESSION: There are numerous noncalcified pulmonary nodules most of which are unchanged. Only 1 nodule identified is new in the left upper lobe measuring 3 mm. This may not have been seen previously due to slice orientation. Continued six-month follow-up is suggested. The mildly prominent mediastinal lymph nodes and left hilar lymph node are less prominent. Dictated by: Cedrick Burnette MD 02/16/2020 09:36 Cedrick Burnette MD in [place] 02/16/2020 09:36
[2020-02-15 14:16] LABS: Chloride 102 mmol/L (98-107); Sodium 139 mmol/L (136-145)
[2020-02-15 14:17] LABS: Potassium 4.2 mmoL/L (3.5-5.1)
[2020-02-15 14:19] LABS: Blood Urea Nitrogen 14 mg/dl (7-17); Estimated Glomerular Filt Rate 88 ml/min (>60); GFR (African American) 106 ML/MIN (>60)
[2020-02-15 14:20] LABS: Anion Gap 10.2 mEq/L (5-15); Calcium 9.7 mg/dl (8.4-10.2); Carbon Dioxide 31 mmol/L (22.0-30.0); Glucose 110 mg/dl (74-100)
== END ==
PROVIDERS: PCP Nurse Practitioner Family; Visit Provider Nurse Practitioner Family
DX: Z01.818 Encounter for other preprocedural examination (principal); R91.8 Other nonspecific abnormal finding of lung field
CPT/HCPCS: 36415; 71260; 80048; Q9967

== ENCOUNTER → 2020-02-28 16:01 | Outpatient (CLI) | payer OTHER, SELFPAY ==
--- NOTE | 2020-02-28 16:01 | MR_ITS ---
PROCEDURE: MR SHOULDER RT WO CON CLINICAL INDICATION: Rt shoulder pain INJURY TO RIGHT SHOULDER WHEN LIFTING SOMETHING 3 MONTHS AGO, PT STATES IT HASNT BEEN RIGHT SINCE. RIGHT SHOULDER PAIN, LIMITED ROM. PRIOR XRAYS 01-12-20 COMPARISON: DX XR SHOULDER RT MIN 2V from 01/12/2020 TECHNIQUE: Routine multiplanar multi echo sequences are performed without gadolinium enhancement. FINDINGS: Exam somewhat limited secondary to patient's body habitus. Prominent hypertrophic changes are present at the acromioclavicular joint. There is a complete tear of the supraspinatus and infraspinatus tendons with retraction of the musculotendinous fibers. The subscapularis and teres minor tendon appear intact. No obvious labral tear. The bicipital tendon is in place. There is a small shoulder joint effusion with some fluid in the sub coracoid region and subdeltoid area. IMPRESSION: 1. Complete tears of the supraspinatus and infraspinatus tendons with retraction of the musculotendinous fibers 2. Prominent bony hypertrophy of the AC joint. 3. Shoulder joint effusion with subcoracoid and subdeltoid fluid as well Dictated by: Cedrick Burnette MD 03/01/2020 12:41 Cedrick Burnette MD in [place] 03/01/2020 12:41
== END ==
PROVIDERS: PCP Nurse Practitioner Family; Visit Provider Orthopaedic Surgery
DX: M25.511 Pain in right shoulder (principal)
CPT/HCPCS: 73221

== ENCOUNTER 2020-04-11 18:02 | Emergency (ER) | payer OTHER, SELFPAY ==
[2020-04-11 18:11] VITALS: BP 160/79; PULSE 130; RESP 18; TEMP 38.8; O2SAT 98; BMI 50.3
[2020-04-11 18:13] VITALS: BP 160/79; PULSE 130; RESP 18; TEMP 38.8; O2SAT 98; BMI 50.3
--- NOTE | 2020-04-11 18:40 | HMH.EDUTC ---
[facility] Disposition Clinical Impression: Viral syndrome Disposition: Home, Self-Care Condition on Discharge: Good Instructions: Acute Bronchitis, Preventing the Spread of Coronavirus Discharge Instructions Additional Instructions: Drink plenty of fluids. Take tylenol or ibuprofen for pain or fever. Take the medications as directed. Follow up with your regular doctor. GO TO THE ER FOR ANY WORSENING SYMPTOMS FOLLOW THE DIRECTIONS ON THE COVID-19 HAND OUT THAT WE GAVE YOU REGARDING SELF-ISOLATION UNTIL YOU KNOW YOUR COVID-19 RESULTS Prescriptions: Benzonatate [Tessalon Perle 100mg Cap] 100 mg PO TIDP PRN #30 cap PRN Reason: Cough Transmission Status: Received by [facility] Azithromycin [Z-Joel 250mg Tab*] 250 mg PO UD DOSE PK #6 tab Transmission Status: Received by [facility] Referrals: Trevor Cardenas MD [Primary Care Provider] - Time of Disposition: 19:38 Medical Decision Making - Medical Records Medical records reviewed: No: I reviewed the patient's medical records. - Rei Inquiry Pt receiving controlled substance: No Vital Signs: 04/11/20 18:11 04/11/20 18:13 04/11/20 19:48 Temperature 101.9 F H 101.9 F H 97.9 F Temperature Source Oral Oral Oral Pulse Rate 130 H Pulse Rate [Right Radial] 130 H 130 H Respiratory Rate 18 18 18 Blood Pressure 160/79 H Blood Pressure [Right Arm] 160/79 H 160/79 H Blood Pressure Mean [Right Arm] 106 106 Blood Pressure Source Automatic Cuff Blood Pressure Source [Right Arm] Automatic Cuff Blood Pressure Position Sitting Blood Pressure Position [Right Arm] Sitting 02 Sat by Pulse Oximetry 98 98 Oxygen Delivery Method Room Air Room Air Room Air - Lab Data Lab results reviewed: Yes: I reviewed the patient's lab results. Orders (Tests/Meds): ED MEDICATIONS Discontinued Medications Generic Name Dose Route Start Last Admin Trade Name Freq PRN Reason Stop Dose Admin Acetaminophen 975 mg 04/11/20 18:48 04/11/20 18:49 Acetaminophen 325mg Tab PO 04/11/20 18:49 975 mg ONCE ONE Administration Azithromycin 500 mg 04/11/20 19:38 04/11/20 19:42 Azithromycin 250mg Tablet PO 04/11/20 19:39 500 mg ONCE ONE Administration Protocol ORDERS Category Date Time Status Full Resp Panel w/COVID ([facility]) Routine Lab 04/11/20 18:25 Received [facility] HPI - General Stated complaint: fEVER,santana,mUSCLE PAIN,pAIN r sHOULDEFR Time Seen by Provider: 04/11/20 18:46 Mode of Arrival: Ambulatory Source of Information: Patient Limitations: No Limitations Description of Symptoms (Recalled from Triage Doc. by RN): pt presents to ed triage with c/o fever, chills, and body aches since yesterday. HEENT Symptoms (Recalled from RN notes): Yes Resp Symptoms (Recalled from RN notes): No Skin Symptoms (Recalled from RN notes): No MS Symptoms (Recalled from RN notes): Yes Functional Status (Recalled from RN notes): wnl - History of Present Illness Provider Complaint: She c/o cough, chest congestion, bilateral ear pain, feeling bad, body aches and fever since yesterday. She denies any known exposure to covid. - Related Data Home Medications Medication Instructions Recorded Confirmed triamcinolone acetonide 0.1 % 1 applic TOPICAL TID 05/04/19 03/07/20 topical cream clindamycin phosphate 1 % topical TOPICAL 06/16/19 03/07/20 gel insulin aspar prot-insulin aspart 26 unit SQ BID ml 11/17/19 03/07/20 100 unit/mL (70-30) subcutaneous pen Previous Rx's Medication Instructions Recorded mupirocin calcium 2 % nasal 1 applic INTRANASAL BID #1 g 03/12/18 ointment fluticasone propionate 50 See Rx Instructions .ROUTE 01/26/19 mcg/actuation nasal .COMPLEX #16 milliliter spray,suspension albuterol sulfate 90 mcg/actuation See Rx Instructions .ROUTE 04/19/19 aerosol inhaler .COMPLEX #18 inhaler Weight WinsTouch Ultra2 Test Strips #1 ea 05/04/19 diclofenac sodium 1 % topical gel 2 g TOPICAL QID #100 g
--- NOTE | 2020-04-11 18:45 | XR_ITS ---
PROCEDURE: XR CHEST 2V CLINICAL HISTORY: sob Shortness of breath with cough fever and chills COMPARISON: No exams were available for comparison FINDINGS: The cardiomediastinal silhouette and pulmonary vascularity are within normal limits. The lungs are clear without infiltrates, suspicious nodules, or pleural effusions. There is an area of increased density overlying the inferior aspect of the T6 vertebral body possibly due to an overlying osteophyte versus parenchymal opacity. Follow-up may confirm IMPRESSION: No acute finding. See above for detail Dictated by: Cedrick Burnette MD 04/11/2020 20:01 Cedrick Burnette MD in [place] 04/11/2020 20:01
[2020-04-11 19:48] VITALS: BP 160/79; PULSE 130; RESP 18; TEMP 36.6; O2SAT 98
[2020-04-13 09:02] LABS: Covid-19 Nasal PCR Sendout UK NOT DETECTED
== END 2020-04-11 19:50 | disposition home or self-care (01) ==
PROVIDERS: Emergency Provider Nurse Practitioner Family; PCP Emergency Medicine
DX: B34.9 Viral infection, unspecified (principal); Z20.828 Contact with and (suspected) exposure to other viral communicable diseases; E11.9 Type 2 diabetes mellitus without complications; I10 Essential (primary) hypertension; Z88.0 Allergy status to penicillin; Z79.899 Other long term (current) drug therapy
CPT/HCPCS: 71046; 87581; 87633; 87798; 99202; U0003

== ENCOUNTER → 2020-07-18 13:58 | Outpatient (CLI) | payer OTHER, SELFPAY ==
[2020-07-18 14:09] LABS: Basophils # 0.1 K/mm3 (0-0.2); Basophils % 0.7 % (0.1-2.0); Eosinophils # 0.4 K/mm3 (0.0-0.4); Eosinophils % 3.4 % (0.1-12.0); Hematocrit 50.1 % (37.0-47.0); Hemoglobin 16.3 g/dL (12.2-16.2); Lymphocytes # 2.9 K/mm3 (0.7-4.5); Lymphocytes % 23.1 % (10-50); Mean Corpuscular HGB Conc 32.4 g/dL (31.8-35.4); Mean Corpuscular Hemoglobin 29.3 pg (27.0-31.2); Mean Corpuscular Volume 90.3 fl (81-99); Monocytes # 0.5 K/mm3 (0.1-1.0); Monocytes % 4.2 % (1.7-9.3); Neutrophils # 8.6 K/mm3 (1.8-7.8); Neutrophils % 68.5 % (37.0-80.0); Platelet Count 365 K/mm3 (142-424); Red Blood Count 5.55 M/mm3 (4.20-5.40); Red Cell Distribution Width 14.7 % (11.5-17.5); White Blood Count 12.6 K/mm3 (4.8-10.8)
[2020-07-18 14:25] LABS: Alanine Aminotransferase 26 U/L (12-78); Albumin Level 4.2 g/dl (3.5-5.0); Albumin/Globulin Ratio 1.2 (1.1-1.8); Alkaline Phosphatase 127 U/L (38-126); Anion Gap 12.3 mEq/L (5-15); Aspartate Amino Transferase 27 U/L (14-36); Bilirubin,Total 0.9 mg/dl (0.2-1.3); Blood Urea Nitrogen 18 mg/dl (7-17); Calcium 10.7 mg/dl (8.4-10.2); Carbon Dioxide 30 mmol/L (22.0-30.0); Chloride 101 mmol/L (98-107); Chol/HDL Ratio 4.5 (1-3.5); Cholesterol 210 mg/dl (140-200); Estimated Glomerular Filt Rate 75 ml/min (>60); GFR (African American) 90 ML/MIN (>60); Globulin 3.5 g/dL (1.3-3.2); Glucose 140 mg/dl (74-100); HDL Cholesterol 47 mg/dl (40-60); Potassium 4.3 mmoL/L (3.5-5.1); Sodium 139 mmol/L (136-145); Total Protein,Serum 7.7 g/dl (6.3-8.2); Triglycerides 143 mg/dl (30-150); VLDL Cholesterol 29 mg/dL (0-40)
[2020-07-18 14:28] LABS: Creatinine,Urine Random 127 mg/dL (Not Estab.)
[2020-07-18 14:36] LABS: Direct LDL Cholesterol 132.92 mg/dL (100-129)
[2020-07-18 14:41] LABS: 25-OH Vitamin D, Total 15.5 ng/mL (30-100)
[2020-07-18 14:42] LABS: T4 (Thyroxine) 13.7 ug/dl (5.53-11.0)
[2020-07-18 15:56] LABS: Hemoglobin A1C 6.6 % (4.0-6.0)
== END ==
PROVIDERS: Visit Provider Nurse Practitioner Family
DX: Z00.00 Encounter for general adult medical examination without abnormal findings (principal); E11.9 Type 2 diabetes mellitus without complications; E78.5 Hyperlipidemia, unspecified; I10 Essential (primary) hypertension; E55.9 Vitamin D deficiency, unspecified; Z79.4 Long term (current) use of insulin
CPT/HCPCS: 80053; 80061; 82043; 82306; 82570; 83036; 84436; 84443; 85025

== ENCOUNTER → 2020-12-03 07:40 | Outpatient (CLI) | payer OTHER, SELFPAY ==
--- NOTE | 2020-12-03 07:40 | CT_ITS ---
PROCEDURE: CT CHEST WO CON CLINICAL INDICATION: Lung nodule follow-up COMPARISON: CT CT ABDOMEN PELVIS WO CON from 07/06/[address] CHEST W CON from 02/15/2020 TECHNIQUE: Axial images obtained with sagittal and coronal reformats. All CT scans at the facility use one or more dose reduction, viz: automated exposure control, ma/kV adjustment per patient size (including targeted exams where dose is matched to indication, i.e. head), or iterative reconstruction technique. FINDINGS: HEART AND MEDIASTINAL STRUCTURES: Scattered small mediastinal lymph nodes unchanged. There are extensive coronary artery calcifications the indicating coronary artery disease LUNGS AND PLEURAL SPACES: There are scattered small pulmonary nodules as previously described which are not significantly changed. No new nodules are evident. No effusions or infiltrates. BONY STRUCTURES: Degenerative changes thoracic spine UPPER ABDOMEN: Prominent bilateral adrenal glands maintaining an adrenal form shape not significantly changed consistent with adenomatous formation ADDITIONAL FINDINGS: No other significant abnormalities. IMPRESSION: Overall stable CT appearance of the chest. No change in the small bilateral pulmonary nodules with no new nodules apparent. No change in the mildly prominent mediastinal lymph nodes. Dictated by: Cedrick Burnette MD 12/03/2020 12:40 Cedrick Burnette MD in [place] 12/03/2020 12:40
== END ==
PROVIDERS: PCP Emergency Medicine; Visit Provider Internal Medicine Pulmonary Disease
DX: R91.8 Other nonspecific abnormal finding of lung field (principal)
CPT/HCPCS: 71250

== ENCOUNTER → 2021-08-11 15:24 | Outpatient (POV) | payer OTHER, SELFPAY | PROVIDERS: Visit Provider Internal Medicine Nephrology | DX: Z00.00 Encounter for general adult medical examination without abnormal findings (principal) ==